=== PATIENT | male | born 1965 | race Caucasian/White ===

== ENCOUNTER 2022-07-12 14:11 | Outpatient (CLI) | payer BC ==
[~2022-07-12 14:11] MED LIST: Magnevist 469MG/ML 20 ML VIAL ONE
== END 2022-07-12 14:12 | disposition home or self-care (01) ==
LOC: CSHMRI 14:11
PROVIDERS: ATTEND Family Medicine
DX: M54.12 Radiculopathy, cervical region (principal); M50.023 Cervical disc disorder at C6-C7 level with myelopathy
CPT/HCPCS: 72156; A9579

== ENCOUNTER 2022-08-14 09:09 | Outpatient (CLI) | payer BC | END 2022-08-14 09:10 | disposition home or self-care (01) | LOC: CSHRAD 09:09 | PROVIDERS: ATTEND Neurological Surgery | DX: M54.12 Radiculopathy, cervical region (principal); M47.812 Spondylosis without myelopathy or radiculopathy, cervical region | CPT/HCPCS: 72052 ==